=== PATIENT | female | born 1965 | race Caucasian/White ===

== ENCOUNTER 2021-01-30 11:08 | Emergency (ER) | payer MEDICAID ==
[~2021-01-30] VITALS: Ht 172.7 cm; Wt 133.9 kg
--- NOTE | 2021-01-30 12:14 | NUR ---
pt w/ c/o L ankle pain, pt has hardwar in place and non-healing wound to ankle. pt walked back to room with steady gait. attached to monitors. vss. nadn. postioned to comfort. awaiting orders.
[2021-01-30] MEDS ORDERED: KETOROLAC 30 MG/1 ML IM ONE (12:30)
[2021-01-30] MEDS ORDERED: KETOROLAC 30 MG/1 ML ONE (12:37)
--- NOTE | 2021-01-30 12:40 | NUR ---
pt medicated per emar. vss. nadn
[2021-01-30 14:07] VITALS: BP 123/86
--- NOTE | 2021-01-30 14:08 | NUR ---
Patient/Caregiver given discharge instructions and they have confirmed that they understand the instructions. Patient ambulatory with steady gait.
== END 2021-01-30 14:08 | disposition home or self-care (01) ==
LOC: ED 12:41
DX: M19.072 Primary osteoarthritis, left ankle and foot (principal); M25.572 Pain in left ankle and joints of left foot
CPT/HCPCS: 73610; 96372; 99283; J1885

== ENCOUNTER 2021-05-30 12:31 | Emergency (ER) | payer MEDICAID ==
[~2021-05-30] VITALS: Ht 172.7 cm; Wt 127.0 kg
[2021-05-30 13:02] VITALS: BP 123/75
[2021-05-30] MEDS ORDERED: BACITRACIN ZINC OINT 500U/GM, 0.9 GM ONE (13:06)
[2021-05-30 13:41] LABS: BASOPHILS % (AUTO) 1 % (0-1); EOSINOPHILS % (AUTO) 1 % (1-7); LYMPHOCYTES % (AUTO) 54 % (22-44); MEAN CORPUSCULAR HEMOGLOBIN 31.2 pg (27.0-34.8); MEAN PLATELET VOLUME 7.1 fL (7.4-10.4); MONOCYTES % (AUTO) 4 % (2-9); NEUTROPHILS % (AUTO) 41 % (42-75); PLATELET COUNT 269 x10^3/uL (130-400); RED BLOOD COUNT 4.32 x10^6/uL (3.82-5.3); RED CELL DISTRIBUTION WIDTH 14.3 % (9.6-15.2)
== END 2021-05-30 14:52 | disposition home or self-care (01) ==
LOC: ED 13:00
DX: L03.115 Cellulitis of right lower limb (principal); F17.210 Nicotine dependence, cigarettes, uncomplicated; M19.90 Unspecified osteoarthritis, unspecified site
CPT/HCPCS: 36415; 85025; 99406